=== PATIENT | female | born 1945 | race Caucasian/White ===

== ENCOUNTER 2023-12-21 20:55 | Emergency (ER) | payer MEDICARE, BC, SELFPAY ==
[2023-12-21 21:16] VITALS: BP 140/62; PULSE 57; RESP 16; TEMP 36.6; O2SAT 97; BMI 21.7
--- NOTE | 2023-12-21 23:09 | ED_ITS ---
HPI - Fall General Chief Complaint: Fall Stated Complaint: Fall, no blood thinners Time Seen by Provider: 12/21/23 22:50 Source: patient Mode of arrival: Family Vehicle History of Present Illness HPI Narrative: 78-year-old female presents for evaluation of skin tears. Patient was on a cruise and tripped over beach equipment, landing on her forearms. Patient denies hitting her head, denies use of blood thinners. Patient states that [facility] was not a Clinic on board the cruise ship and so she came to the emergency department for evaluation of her skin tears Related Data Allergies Allergy/AdvReac Type Severity Reaction Status Date / Time nitrofurantoin AdvReac Intermediate Muscle Pain Verified 12/21/23 21:28 [From Macrobid] Exam Initial Vital Signs Initial Vital Signs: Vital Signs Temperature 97.8 F 12/21/23 21:16 Pulse Rate 57 L 12/21/23 21:16 Respiratory Rate 16 12/21/23 21:16 Blood Pressure 140/62 12/21/23 21:16 Pulse Oximetry 97 12/21/23 21:16 Oxygen Delivery Method Room Air 12/21/23 21:16 Const: Awake, alert, no acute distress, nontoxic appearing MSK: No deformity, full range of motion, pulses equal Skin: Multiple skin tears right forearm, left forearm Neuro: AO x3, CN II-XII grossly intact, moves all extremities Course Vital Signs Vital signs: Vital Signs - 8 hr 12/21/23 21:16 Temperature 97.8 F Pulse Rate 57 L Respiratory Rate 16 Blood Pressure 140/62 Pulse Oximetry 97 Oxygen Delivery Method Room Air MDM - Fall MDM Narrative Medical decision making narrative: Multiple superficial skin tears in bilateral forearms, right greater than left. None of these tears deep enough or thick enough to require sutures. Wounds irrigated by nursing staff, clean dressings applied. Discharge Plan Departure Patient Disposition: Home Clinical Impression: Skin tear of forearm without complication Instructions: DI for Abrasion Activity Restrictions/Additional Instructions: Keep your wound clean and dry. You may change the dressings daily. Have fun on your cruise! Referrals: Miscellaneous,Doctor [Primary Care Provider] - Stand Alone Forms: Patient Portal/API
== END 2023-12-21 23:47 | disposition home or self-care (01) ==
PROVIDERS: Emergency Provider Emergency Medicine
DX: S51.812A Laceration without foreign body of left forearm, initial encounter (principal); S51.811A Laceration without foreign body of right forearm, initial encounter; W01.0XXA Fall on same level from slipping, tripping and stumbling without subsequent striking against object, initial encounter
CPT/HCPCS: 99281; 99283